=== PATIENT | female | born 1975 | race Caucasian/White ===

== ENCOUNTER 2022-09-23 08:01 | Day surgery (SDC) | payer OTHER, SELFPAY ==
--- NOTE | 2022-09-23 | IMM_PTH ---
PATIENT: BRIELLE JAIN LOC: EN U#:[id number] AGE/SX: 47/F ROOM: RE09/23/[address]: Dr. Jarrod Clemons MD : 1975 BED: DIS: 09/23/2022 SPEC #: [id number] RECD: 09/24/22 08:06 STATUS: MARÍA ARMENTA #: [id number] BROCK: 09/23/22 00:[address]: Jarrod Clemons DEPT: IMMUNOHISTOCHEMISTRY RECD BY: Aron More ENTERED: 09/24/22 08:07 SP TYPE: IMMUNO OTHR DR: Dr. Chris Lee MD Tissues: A - Pylorus Procedures: H Pylori (initial) PHYSICIAN & INSTITUTION [place] [address] SPECIMEN INFORMATION: Tissue Source: Prepyloric Clinical Info: Anemia, acute Specimen Number: [id number] CPT code: 89108 METHODOLOGY: Deparaffinized sections of prefer/formalin-fixed tissue or PAP/DQ stained slides are incubated with monoclonal/polyclonal antibodies/oligonucleotide probes. Localization is made via biotin free immunoperoxidase method. Appropriate controls are performed and reacted as expected. Results on target cell population are indicated in the following table: RESULTS: ANTIBODY / CLONE RESULT H Pylori (polyclonal) negative These tests were developed and their performance characteristics determined by [facility]. They may not have been cleared or approved by the U.S. Food and Drug Administration. The FDA has determined that such clearance or approval is not necessary. The above immunohistochemical/dualISH markers are ordered and reviewed by the Pathologist. INTERPRETATION: A. Prepyloric, biopsy: Negative for Helicobacter pylori organisms. AM:misha 09/24/22
--- NOTE | 2022-09-23 | GASB_PTH ---
[id number] LOC: EN U#:[id number] AGE/SX: 47/F ROOM: RE09/23/[address]: Dr. Jarrod Clemons MD : 1975 BED: DIS: 09/23/2022 SPEC #: [id number] RECD: 09/23/22 11:00 STATUS: MARÍA KATHI #: [id number] BROCK: 09/23/22 00:[address]: Jarrod Clemons DEPT: SURGICAL PATHOLOGY RECD BY: Juan M Cantu ENTERED: 09/23/22 13:13 SP TYPE: Gastric Bx OTHR DR: Dr. Chris Lee MD Tissues: A - Pyloric antrum B - Gastric mucous membrane C - Gastric mucous membrane D - Gastric mucous membrane E - Rectum, NOS F - Rectum, NOS G - Descending colon H - Sigmoid colon biopsy I - Sigmoid colon biopsy J - Anal region Procedures: Surgery Specimen Level IV HEADER OPERATION: Colonoscopy, EGD biopsy PRE-OP DIAGNOSIS: Anemia, acute TISSUE SUBMITTEDA. A. Prepyloric, B. Gastric body greater curvature, C. Fundic, D. Zline, E. Rectum polyp, F. Rectum polyps, G. Descending colon polyp, H. Sigmoid proximal colon polyp, I. Distal sigmoid polyp, J. Anal verge polyp FROZEN SECTION DIAGNOSIS . MICROSCOPIC DIAGNOSIS A. Prepyloric, biopsy: Mild chronic inflammation. B. Gastric body greater curvature, biopsy: Mild chronic inflammation. C. Fundic, biopsy: Mild chronic inflammation. D. Z-line, biopsy: Chronic gastritis. E. Rectum polyp, biopsy: Tubular adenoma. F. Rectum polyps, biopsy: Fragments of hyperplastic polyp. G. Descending colon polyp, biopsy: Fragments of hyperplastic polyp. H. Sigmoid proximal colon polyp, biopsy: Colonic mucosa with hyperplastic change. I. Distal sigmoid polyp, biopsy: Fragments of hyperplastic polyp. J. Anal verge polyp, biopsy: Benign squamous polyp with degenerative change and vascular congestion. AM:am 09/24/22 COMMENT A. The results of immunohistochemistry for Helicobacter pylori will be reported separately ([id number]). MICROSCOPIC DESCRIPTION Slides are reviewed. GROSS DESCRIPTION A. Received is one container labeled with the patient name and designated prepyloric. The specimen consists of two irregular fragments of light nance soft tissue that in aggregate measure 0.6 x .2 x .1 cm. The specimen is totally submitted in one cassette. B. Received is one container labeled with the patient name and designated gastric body greater curvature. The specimen consists of two irregular fragments of light nance soft tissue that in aggregate measure .6 x .3 x .1 cm. The specimen is totally submitted in one cassette. C. Received is one container labeled with the patient name and designated fundic. The specimen consists of multiple irregular fragments of light nance soft tissue that in aggregate measure .6 x .6 x .1 cm. The specimen is totally submitted in one cassette. D. Received is one container labeled with the patient name and designated zline. The specimen consists of multiple irregular fragments of light nance soft tissue that in aggregate measure .6 x .3 x .1 cm. The specimen is totally submitted in one cassette. E. Received in fixative is one container labeled with the patient's name and designated rectum polyp. The specimen consists of a pink-red polyp measuring 1.5 x 1 x 1 cm. The presumed base is inked. The polyp is serially sectioned and submitted entirely in one cassette. F. Received is one container labeled with the patient name and designated rectum polyp. The specimen consists of multiple irregular fragments of light nance soft tissue that in aggregate measure 2.5 x .5 x .1 cm. The specimen is totally submitted in one cassette. G. Received is one container labeled with the patient name and designated descending colon. The specimen consists of multiple irregular fragments of light nance soft tissue that in aggregate measure 1 x .3 x .1 cm. The specimen is totally submitted in one cassette. H. Received is one container labeled with the patient name and designated Sigmoid proximal colon. The specimen consists of multiple irregular fragments of light nance soft tissue that in aggregate measure 06 x .3 x .1 cm. The specimen is totally submitted in one cassette. I. Received is one container labeled with the patient name and designated distal sigmoid polyp. The specimen consists of multiple irregular fragments of light nance soft tissue that in aggregate measure 2 x .7 x .1 cm. The specimen is totally submitted in one cassette. J. Received is one container labeled with the patient name and designated anal verge. a pink-red polyp measuring 0.8 x 0.5 x 0.5 cm. The presumed base is inked. The polyp is bisected and submitted entirely in one cassette. /SJ:cc 09/24/22 TC:3 CPT:22875 x10,
[2022-09-23] MEDS: Lactated Ringers 1,000 ML 15 ML IV (08:48)
[2022-09-23 08:49] VITALS: BP 138/97; PULSE 78; RESP 18; TEMP 37; O2SAT 100; BMI 32.3
[2022-09-23 08:57] LABS: Internal QC Validated? YES +Cl - CLEAR BKGD; Pregnancy, Urine Negative Negative
--- NOTE | 2022-09-23 09:34 | PCM.HP.BLA ---
History and Physical Date of Admission: 09/23/22 Date of Service: 09/13/22 MR#: [id number] Acct: [id number] Name: BRIELLE NAZARIO Rep #: [id number] : 1975 Provider: Dr. Jarrod Clemons MD Age/Sex: 47/F Location: [facility] Status: Signed Intake Vital Signs 04/26/2308:35 09/13/2312:21 Height 5 ft 7 in 5 ft 6 in Weight: 211 lb 199 lb BMI 33.0 32.1 BP 148/90 H 151/91 H Blood Pressure Location Rt radial Rt brachial Position Sitting Sitting Respiration 16 16 Pulse 90 84 Pulse Source Monitor Monitor Temp 97.9 F Temp Source Temporal Pulse Oximetry (%) 100 Oxygen Delivery Method room air Intake Visit Reasons: UPPER & LOWER - ANEMIA Chief Complaint: upper/lower-anemia Allergies No Known Allergies Allergy (Unverified 09/13/22 13:23) Nurse's Note: Patient didnt know the strength of any of her meds. she states she is taking lisinopril, levothyroxine and omeprazole. HPI HPI HPI: Patient is a 47-year-old female who presents for need to schedule diagnostic colonoscopy secondary to recently diagnosed iron deficiency anemia. They are referred for surgical consultation from RAMEZ Beltran. Mansi reports today with her . She states that she went to her PCP office on 09/06/2022 after feeling as though her face was tingly some shortness of breath, some dizziness, and some left upper quadrant discomfort. She notes that the symptoms preceded her presentation by just 2 days. She confirms that her energy level has been okay and she denies any lightheadedness. Patient has not had prior colonoscopy. Patient has no personal history of phonatory bowel disease or diverticulitis. They describe their bowel habits as normal and occurring at least 1 time per day without significant straining. She specifically denies any difficulties with constipation or diarrhea. They have not noticed recent bleeding or dark stools. Patient has no family history of colon cancer, inflammatory bowel disease, or diverticulitis. The patient's weight is not stable and she reports an intentional weight loss of 45 pounds over the last 2 years. She states that she has a new job where she is very active walking and is also trying to make some dietary changes. Also regarding her anemia, patient states that she is still menstruating and has noticed some heavier menstrual cycles than when she was younger, but does not believe this is enough to explain her current symptoms. She denies any other sources of blood loss. The patient is not prescribed anticoagulants/blood thinners. Relevant prior abdominal surgical history includes: section 2000, appendectomy 2011 Patient does have a significant history of GERD/heartburn and currently takes omeprazole. She states that her symptoms are well controlled with this medication and will experience breakthrough symptoms maybe only once per month. She believes that she has had a prior upper scope, but is unable to clarify any details initially. When asked about any prior ulcer disease, she states she believes this was the cause for her upper scope and now that it is mentioned her left upper quadrant discomfort noted earlier feels similar to when she was diagnosed with ulcers previously. She denies any significant recent life stressors. In addition to the above, Mrs. Nazario reports that she is due to be evaluated for possible gallbladder surgery. She states that this comes after a work-up for some right upper quadrant discomfort she was having which included a right upper quadrant ultrasound that identified gallstones. She states that she has had no right upper quadrant discomfort lately while watching her diet for any fatty foods. ROS General General: No weight change, appetite, fatigue, colon cancer, breast cancer or weakness HEENT HEENT: No difficulty swallowing, eye injury, eye surgery, swollen glands or hoarseness Endo Endocrine: No thyroid disease, diabetes mellitus, thyroid cancer, Hair loss, heat intolerance or cold intolerance Skin Skin: No rash or changing moles Breast Breast: No left breast lump, right breast lump, nipple discharge, breast pain, abnormal mammogram, abnormal US or breast enlargement Musc Musculoskeletal: No back problems, arthritis, rheumatoid arthritis, gout or joint pain Cardio Cardiovascular: No murmur, pacemaker, heart disease, atrial fibrillation, high blood pressure, heart attack, heart stent, palpitations, shortness of breat with exertion or chest pain Psych Psychiatric: No depression, anxiety or hearing voices Resp Respiratory: No shortness of breath, No sleep apnea, No cough, No COPD, No asthma, No emphysema and No wheezing Gastro Gastrointestinal: No abdominal pain, No nausea or vomiting, No diarrhea, No constipation, No blood in stool, No acid reflux, No hemorrhoids, No ulcers, No gallbladder problem and No black,tarry stools Adama Hematologic: No blood thinners, No blood disorders, No bleeding, No anemia and No blood clots Neuro Neurologic: No system reviewed and no additional complaints, except as documented, No as per HPI, No abnormal gait, No abnormal hearing, No abnormal movements, No abnormal speech, No behavioral changes, No burning sensations, No confusion, No convulsions, No disequilibrium, No dizziness, No localized weakness, No frequent falls, No headache(s), No lack of coordination, No loss of vision, No memory loss, No numbness, No other visual disturbances, No radicular pain, No restless legs, No sensory deficit, No syncope, No tingling, No tremor(s), No weakness and No other Exam Const General: cooperative, comfortable and no acute distress Orientation: alert, awake and oriented x3 Resp Effort & Inspection: normal respiratory effort GI Other: Nondistended, well-healing port site scars from prior appendectomy, soft, nontender to palpation x4 quadrants (but patient motions to her left upper abdomen as of the point in which she has experienced internal discomfort previously. Negative Napoles sign. Assessment and Plan Assessment and Plan (1) Anemia: Status: Acute Qualifiers: Anemia type: iron deficiency Comment: This is a 47-year-old female who presents rather acutely following development of symptoms of shortness of breath and dizziness and is found to exhibit iron deficient anemia. Hemoglobin checked last week was 9.1 g/dL. MCV was 72. Per MrsMarjorie Nazario her PCP is looking to initiate supplemental iron therapy as soon as possible. Taking patient's history, she denies any changes to her bowel habits and any signs of blood loss with her stools. She does describe some left upper quadrant discomfort which is reminiscent of a past experience with peptic ulcers. Given this history and her current complaints, this could certainly be implicated. Yet, given that she is 47 years old and has not completed a screening colonoscopy, I recommend pursuing both diagnostic EGD and colonoscopy continue to evaluate for source of her anemia. Procedure was discussed in detail and all questions were taken from patient and her spouse. I will plan to proceed with a standard split prep given that she has regular bowel function, but have cautioned her to notify us if she develops constipation in response to the planned iron therapy that we should move this to a 2-day prep. Plan: ? Recommend diagnostic EGD and colonoscopy under local MAC to evaluate for source of new anemia. Procedures to be scheduled as soon as possible. As above, planning for standard split prep I have examined the patient and the H&P has been reviewed. There are no clinical changes since date of exam. Patient confirms that she completed her prep in anticipation of today's procedure and that her output is now clear without sediment. She also reports that her abdominal discomfort noted during her consultation visit seems to have subsided. She and her family deny any questions related to the procedure after details are briefly reviewed. Therefore we will proceed to endoscopy suite for planned upper and lower diagnostic scopes occasioned by finding of iron deficiency anemia.
[2022-09-23 10:56] VITALS: BP 110/65; BP 138/97; PULSE 84; RESP 14; TEMP 36.4; O2SAT 98
[2022-09-23 11:00] VITALS: BP 114/82; BP 138/97; PULSE 84; RESP 18; O2SAT 97
--- NOTE | 2022-09-23 11:00 | OP.EGD_ITS ---
Patient Name: Nuvia Nazario Procedure Date: 09/23/2022 9:39 AM Date of : 1975 Age: 47 Procedure: Upper GI endoscopy Indications: Abdominal pain in the left upper quadrant, Iron deficiency anemia, Personal history of peptic ulcer disease Providers: Jarrod Clemons MD Medicines: See the Anesthesia note for documentation of the administered medications Patient Profile: Refer to note in patient chart for documentation of history and physical. Complications: No immediate complications. Estimated blood loss: Minimal. Procedure: Pre-Anesthesia Assessment: - The heart rate, respiratory rate, oxygen saturations, blood pressure, adequacy of pulmonary ventilation, and response to care were monitored throughout the procedure. After obtaining informed consent, the endoscope was passed under direct vision. Throughout the procedure, the patient's blood pressure, pulse, and oxygen saturations were monitored continuously. The was introduced through the mouth, and advanced to the second part of duodenum. The upper GI endoscopy was accomplished without difficulty. The patient tolerated the procedure well. Scope In: 9:48:37 AM Scope Out: 10:00:41 AM Total Procedure Duration Time 0 hours 12 minutes 4 seconds Findings: No gross lesions were noted in the duodenal bulb, in the first portion of the duodenum and in the second portion of the duodenum. No biopsies or other specimens were collected for this exam. Localized mildly erythematous mucosa without bleeding was found in the prepyloric region of the stomach. Biopsies were taken with a cold forceps for histology. Estimated blood loss was minimal. Localized mildly erythematous mucosa without bleeding was found on the greater curvature of the stomach. Estimated blood loss was minimal. Localized mild mucosal changes characterized by altered texture were found in the gastric fundus. Biopsies were taken with a cold forceps for histology. Estimated blood loss was minimal. A small hiatal hernia was present. No biopsies or other specimens were collected for this exam. The Z-line was irregular and was found 39 cm from the incisors. Biopsies were taken with a cold forceps for histology. Estimated blood loss: Minimal. The exam was otherwise without abnormality. Impression: - No gross lesions in the duodenal bulb, in the first portion of the duodenum and in the second portion of the duodenum. No specimens collected. - Erythematous mucosa in the prepyloric region of the stomach. Biopsied. - Erythematous mucosa in the greater curvature. - Texture changed mucosa in the gastric fundus. Biopsied. - Small hiatal hernia. No specimens collected. - Z-line irregular, 39 cm from the incisors. Biopsied. - The examination was otherwise normal. Recommendation: - Discharge patient to home (via wheelchair). - Resume previous diet today. - Use Prilosec (omeprazole) 20 mg PO daily today. - Continue present medications. Procedure Code(s): --- Professional --- 48901, Esophagogastroduodenoscopy, flexible, transoral; with biopsy, single or multiple Diagnosis Code(s): --- Professional --- K31.89, Other diseases of stomach and duodenum K44.9, Diaphragmatic hernia without obstruction or gangrene K22.8, Other specified diseases of esophagus R10.12, Left upper quadrant pain D50.9, Iron deficiency anemia, unspecified Z87.11, Personal history of peptic ulcer disease CPT copyright 2017 [employer]. All rights reserved. The codes documented in this report are preliminary and upon reroller hand review may be revised to meet current compliance requirements. Jarrod Clemons MD 09/23/2022 11:00:26 AM This report has been signed electronically. Number of Addenda: 0 Note Initiated On: 09/23/2022 9:39 AM
[2022-09-23 11:05] VITALS: BP 114/84; BP 138/97; PULSE 83; RESP 16; O2SAT 96
[2022-09-23 11:11] VITALS: BP 118/71; BP 138/97; PULSE 71; RESP 16; TEMP 36.2; O2SAT 95
--- NOTE | 2022-09-23 11:11 | OP.COLON_ITS ---
Patient Name: Nuvia Nazario Procedure Date: 09/23/2022 10:01 AM Date of : 1975 Age: 47 Procedure: Colonoscopy Indications: Iron deficiency anemia Providers: Jarrod Clemons MD Medicines: See the Anesthesia note for documentation of the administered medications Patient Profile: Refer to note in patient chart for documentation of history and physical. Last Colonoscopy: none. The patient's first colonoscopy is today. Complications: No immediate complications. Estimated blood loss: Minimal. Procedure: Pre-Anesthesia Assessment: - The heart rate, respiratory rate, oxygen saturations, blood pressure, adequacy of pulmonary ventilation, and response to care were monitored throughout the procedure. - The heart rate, respiratory rate, oxygen saturations, blood pressure, adequacy of pulmonary ventilation, and response to care were monitored throughout the procedure. After I obtained informed consent, the scope was passed under direct vision. Throughout the procedure, the patient's blood pressure, pulse, and oxygen saturations were monitored continuously. The was introduced through the anus and advanced to the cecum, identified by palpation. The colonoscopy was performed without difficulty. The patient tolerated the procedure well. The quality of the bowel preparation was adequate to identify polyps. Scope In: 10:02:55 AM Scope Withdrawal Time 0 hours 27 minutes 27 seconds Scope Out: 10:49:38 AM Total Procedure Duration Time 0 hours 46 minutes 43 seconds Findings: Multiple small and large-mouthed diverticula were found in the sigmoid colon, descending colon and transverse colon. No biopsies or other specimens were collected for this exam. A 15 mm polyp was found in the descending colon. The polyp was semi-sessile. Biopsies were taken with a cold forceps for histology. Estimated blood loss was minimal. A 15 mm polyp was found in the proximal sigmoid colon. The polyp was semi-sessile. Biopsies were taken with a cold forceps for histology. Estimated blood loss was minimal. A 15 mm polyp was found in the distal sigmoid colon. The polyp was semi-sessile. Biopsies were taken with a cold forceps for histology. Estimated blood loss was minimal. A 20 mm polyp was found in the rectum. The polyp was pedunculated. The polyp was removed with a hot snare. Resection and retrieval were complete. Estimated blood loss: none. Multiple sessile polyps were found in the rectum. The polyps were 3 to 5 mm in size. These were biopsied with a cold forceps for histology. Estimated blood loss was minimal. A 10 mm polyp was found in the anus. The polyp was pedunculated. The polyp was removed with a hot snare. Resection and retrieval were complete. Estimated blood loss: none. Impression: - Diverticulosis in the sigmoid colon, in the descending colon and in the transverse colon. No specimens collected. - One 15 mm polyp in the descending colon. Biopsied. - One 15 mm polyp in the proximal sigmoid colon. Biopsied. - One 15 mm polyp in the distal sigmoid colon. Biopsied. - One 20 mm polyp in the rectum, removed with a hot snare. Resected and retrieved. - Multiple 3 to 5 mm polyps in the rectum. Biopsied. - One 10 mm polyp at the anus, removed with a hot snare. Resected and retrieved. Recommendation: - Discharge patient to home (via wheelchair). - High fiber diet today. - Continue present medications. - Await pathology results. - Repeat colonoscopy date to be determined after pending pathology results are reviewed for surveillance based on pathology results. - Telephone my office for pathology results in 1 week. Procedure Code(s): --- Professional --- 39335, Colonoscopy, flexible; with removal of tumor(s), polyp(s), or other lesion(s) by snare technique 89409, 59, Colonoscopy, flexible; with biopsy, single or multiple Diagnosis Code(s): --- Professional --- D12.4, Benign neoplasm of descending colon D12.5, Benign neoplasm of sigmoid colon K62.1, Rectal polyp K62.0, Anal polyp D50.9, Iron deficiency anemia, unspecified K57.30, Diverticulosis of large intestine without perforation or abscess without bleeding CPT copyright 2017 [employer]. All rights reserved. The codes documented in this report are preliminary and upon remote coders review may be revised to meet current compliance requirements. Jarrod Clemons MD 09/23/2022 11:10:46 AM This report has been signed electronically. Number of Addenda: 0 Note Initiated On: 09/23/2022 10:01 AM
[2022-09-23 11:22] VITALS: BP 138/97
== END 2022-09-23 11:36 | disposition home or self-care (01) ==
LOC: EN 08:05 → AC 08:07
PROVIDERS: Anesthesiology; PCP Family Medicine; Referring Provider Family Medicine; Visit Provider Surgery
PROC: 0DJD8ZZ Inspection of Lower Intestinal Tract, Via Natural or Artificial Opening Endoscopic (ICD-10-PCS; CPT 45378; principal; 2022-09-23 09:10)
DX: D50.9 Iron deficiency anemia, unspecified (principal); K62.0 Anal polyp; K57.30 Diverticulosis of large intestine without perforation or abscess without bleeding; K80.20 Calculus of gallbladder without cholecystitis without obstruction; R06.02 Shortness of breath; K44.9 Diaphragmatic hernia without obstruction or gangrene; K62.1 Rectal polyp; Z56.1 Change of job; D12.4 Benign neoplasm of descending colon; D12.5 Benign neoplasm of sigmoid colon; K31.89 Other diseases of stomach and duodenum; Z87.11 Personal history of peptic ulcer disease
CPT/HCPCS: 43239; 45385; 45380; 81025; 88305; 88331; 88332; 88342; J7120; J2405

== ENCOUNTER 2022-11-26 06:12 | Day surgery (SDC) | payer OTHER, SELFPAY ==
[2022-11-26] VITALS (7 sets, daily range): BP systolic 112–162; BP diastolic 57–82; PULSE 67–82; RESP 15–18; TEMP 36.1–36.6; O2SAT 93–100; BMI 31.3
[2022-11-26 06:51] LABS: Internal QC Validated? YES +Cl - CLEAR BKGD; Pregnancy, Urine Negative Negative
[2022-11-26] MEDS: Lactated Ringers 1,000 ML 15 ML IV ×3 (07:04→11:29)
--- NOTE | 2022-11-26 07:15 | HP.PCM_ITS ---
History and Physical Date of Service: 11/08/22 MR#: [id number] Acct: [id number] Name: BRIELLE JAIN Rep #: [id number] : 1975 Provider: Dr. Jarrod Clemons MD Age/Sex: 47/F Location: [facility] Status: Signed Intake Vital Signs 10/11/2305:44 11/08/2308:28 Height 5 ft 6 in 5 ft 6 in Weight: 198 lb 6 oz 197 lb BMI 32.0 31.8 BP 142/92 H 143/90 H Blood Pressure Location Rt brachial Rt brachial Position Sitting Sitting Respiration 17 Pulse 80 81 Pulse Source Monitor Monitor Temp 97.2 F L Temp Source Temporal Pulse Oximetry (%) 99 100 Oxygen Delivery Method room air Intake Visit Reasons: CHOLECYSTITIS/POSITIVE COLOGUARD Chief Complaint: cholecystitis Is patient in pain?: No Allergies No Known Allergies Allergy (Verified 11/08/22 09:30) Medications levothyroxine 100 mcg tablet 100 mcg PO DAILY 09/21/22 [History Confirmed 11/08/22] lisinopril 5 mg tablet 5 mg PO DAILY 09/21/22 [History Confirmed 11/08/22] pantoprazole 40 mg tablet,delayed release 40 mg PO DAILY #28 tabs 09/29/22 [Rx Confirmed 11/08/22] multivitamin with iron 1 tab PO DAILY 11/08/22 [History Confirmed 11/08/22] PFSH Medical History Gallstones GERD (gastroesophageal reflux disease) Leg cramps Smoker Thyroid disease Surgical History History of appendectomy History of section Family History (Updated 11/08/22 @ 09:28 by Suma Ball) Mother Hypertension Social History Smoking Status: Current every day smoker tobacco type: cigarettes HPI HPI HPI: Patient is a 47-year-old female who presents for evaluation of cholelithiasis. She is known to me for a prior history of positive Cologuard testing and she is status post EGD and colonoscopy on 09/23/2022. They are referred for surgical consultation from RAMEZ Gibbs. She presents today with her . She states that overall she has been able to watch what she eats and by doing so has limited her symptoms. When asked to expound upon this she states that she is intentionally limiting greasy and spicy foods from her diet. She notes that she recently became sick when she tried to eat some pulled pork. She describes her symptoms as right upper quadrant discomfort and that moves to her back. It is accompanied by some nausea. She denies any associated fevers or chills. She denies any other health updates since our last interactions a month ago. Previous work-up has included: Right upper quadrant ultrasound from 07/09/2022 which showed a 2.5 cm gallbladder calculus with normal gallbladder wall and normal CBD. Past surgical history includes laparoscopic appendectomy. ROS General General: No weight change, appetite, fatigue, colon cancer, breast cancer or weakness HEENT HEENT: No difficulty swallowing, eye injury, eye surgery, swollen glands or hoarseness Endo Endocrine: Yes thyroid disease; No diabetes mellitus, thyroid cancer, Hair loss, heat intolerance or cold intolerance Skin Skin: No rash or changing moles Musc Musculoskeletal: No back problems, arthritis, rheumatoid arthritis, gout or joint pain Cardio Cardiovascular: Yes high blood pressure; No murmur, pacemaker, heart disease, atrial fibrillation, heart attack, heart stent, palpitations, shortness of breat with exertion or chest pain Psych Psychiatric: No depression, anxiety or hearing voices Resp Respiratory: No shortness of breath, No sleep apnea, No cough, No COPD, No asthma, No emphysema and No wheezing Gastro Gastrointestinal: Yes abdominal pain, No nausea or vomiting, No diarrhea, No constipation, No blood in stool, Yes acid reflux, No hemorrhoids, No ulcers, Yes gallbladder problem and No black,tarry stools Adama Hematologic: No blood thinners, No blood disorders, No bleeding, No anemia and No blood clots Neuro Neurologic: No system reviewed and no additional complaints, except as documented, No as per HPI, No abnormal gait, No abnormal hearing, No abnormal movements, No abnormal speech, No behavioral changes, No burning sensations, No confusion, No convulsions, No disequilibrium, No dizziness, No localized wea kness, No frequent falls, No headache(s), No lack of coordination, No loss of vision, No memory loss, No numbness, No other visual disturbances, No radicular pain, No restless legs, No sensory deficit, No syncope, No tingling, No tremor(s), No weakness and No other Exam Const General: cooperative and no acute distress Orientation: alert, awake and oriented x3 Resp Effort & Inspection: normal respiratory effort GI Other: Nondistended, midepigastric scar with slight hypertrophic element, soft, nontender to palpation x4 quadrants. Negative Napoles sign. No herniations detected. Assessment and Plan Assessment and Plan (1) Symptomatic cholelithiasis: Status: Acute Comment: This is a 47-year-old female with a history of right upper quadrant pain?particularly following ingestion of greasy foods and ultrasound evidence of a large 2.5 cm gallstone. Patient is presently nontender on exam, however based on her description and where she states her pain is centralized on exam, I do believe her symptoms are secondary to this gallstone. Therefore, it is my recommendation to pursue cholecystectomy. I have shared with her that I would also recommend concurrent cholangiography and given that her most recent comprehensive metabolic panel available to me is from May of this year, would recommend updating this preoperatively. I have shared with patient that she would be an ideal candidate for minimally invasive cholecystectomy?to be done either robotically or laparoscopically. She has chosen to proceed laparoscopically given the greater date availability. Details of the procedure have been reviewed and this introduction was facilitated with the use of hand drawings of the relevant anatomy. We will plan for outpatient cholecystectomy with cholangiography, but patient is also briefed that she could require an observational stay with ERCP if she was found to have choledocholithiasis. She and her expressed understanding and are interested in moving forward at the next mutual schedule availability. Plan: Laparoscopic cholecystectomy with intraoperative cholangiogram. Planned disposition: Outpatient. I have examined the patient and the H&P has been reviewed. There are no clinical changes since date of exam. Procedure and post procedure expectations reviewed with patient. Consents were confirmed. They have no further questions. Proceed to the operating room for laparoscopic cholecystectomy with intraoperative cholangiogram as discussed above.
[2022-11-26] MEDS: Cefazolin 2 GM in 0.9% Normal Saline (100mL Bag) 100 ML IV (07:47)
--- NOTE | 2022-11-26 08:00 | GALL_PTH ---
PATIENT: BRIELLE JAIN [place] [facility] [place][id number] AGE/SX: 47/F ROOM: RE11/26/[address]: Dr. Jarrod Clemons MD : 1975 BED: DIS: 11/26/2022 SPEC #: [id number] RECD: 11/26/22 10:20 STATUS: MARÍA KATHI #: [id number] BROCK: 11/26/22 08:[address]: Jarrod Clemons DEPT: SURGICAL PATHOLOGY RECD BY: Charis Alegre ENTERED: 11/26/22 11:35 SP TYPE: ADAM OLIVER DR: Dr. Chris Lee MD Tissues: Gallbladder, NOS Procedures: Surgery Specimen Level III HEADER OPERATION: Laparoscopic cholecystectomy with IOC PRE-OP DIAGNOSIS: Symptomatic cholelithiasis TISSUE SUBMITTED: Gallbladder MICROSCOPIC DIAGNOSIS Gallbladder, cholecystectomy: Chronic cholecystitis and cholelithiasis. AM:ying 11/29/2022 MICROSCOPIC DESCRIPTION Slides are reviewed. GROSS DESCRIPTION Received is one container labeled with the patient's name and designated gallbladder. The specimen consists of a gallbladder measuring 9.0 cm in length and up to 3.0 cm in diameter. The external surface is pink-nance, smooth and glistening for the most part. Focally it is granular, hemorrhagic and contains cautery artifact. The gallbladder contains green-yellow mucoid bile and one greenish, ovoid stone measuring 3.0 cm in greatest dimension. The mucosa is bile-stained and without any mass lesions. The gallbladder wall measures up to 0.2 cm in thickness. Deckhand Oyster Dredge sections from the gallbladder and the cystic duct are submitted in one cassette. / SJ:rg 11/26/2022 TC:3 [facility]: [id number]
--- NOTE | 2022-11-26 08:10 | RAD_ITS ---
STUDY: INTRAOPERATIVE CHOLANGIOGRAM. REASON FOR EXAM: Female, 47 years old. Laparoscopic cholecystectomy. FLUOROSCOPY TIME (if supplied): ( 27.8 seconds ) minutes/seconds. 11.14 mGy TECHNIQUE: An intraoperative discogram was performed by the surgeon. Imaging was submitted. COMPARISON: None. FINDINGS: The intra and extrahepatic biliary ducts are unremarkable. There is free flow of contrast into the duodenum. RAD/Cholangiogram/ O R,Initial IMPRESSION: Unremarkable intraoperative cholangiogram. Electronically Signed: Fernando Brennan MD at 10:28 EDT ,
[2022-11-26] MEDS: Bupivacaine Mpf 0.5% 30 ML VIAL (08:20)
--- NOTE | 2022-11-26 09:17 | OP.PCM_ITS ---
Report of Operation Date of Procedure: 11/26/22 Pre-Operative Diagnosis: Symptomatic cholelithiasis Post-Operative Diagnosis: 1. Symptomatic cholelithiasis 2. Chronic cholecystitis Surgery/Procedure Performed:: Laparoscopic cholecystectomy and intraoperative cholangiogram Description of Surgical Findings:: ? Grossly normal biliary anatomy with single cystic duct and cystic artery ? Evidence of chronic inflammation around the duct and artery ? Cholangiogram appeared to show takeoff of the cystic duct from the right hepatic duct but no filling defects through the ampulla Vater into the duodenum Surgeon: Jarrod Clemons professor of physical education: Alfred Miller Type of Anesthesia: General/Supplemental Anesthesiologist: Wale Bernstein Specimen's removed: Gallbladder Drains: None Estimated Blood Loss (mL): 5 Description of Procedure: After proper identification in the preoperative holding area the patient was brought to the operating room where she was positioned supine on the operating room table. Preoperatively these were placed and antibiotics were administered. General anesthesia was then induced. Patient's abdomen was prepped and draped in usual sterile fashion. A formal timeout was conducted to confirm both pa tient and the procedure. Procedure was begun with a supraumbilical incision which was extended deeply down to the level of the fascia. The fascia was elevated and incised, as well as the peritoneum. A finger sweep was performed to ensure there were no underlying adhesions and a 12 mm balloon trocar was inserted. Pneumoperitoneum was established at 15 mmHg. 3 additional trocars were placed in the epigastrium and in the right upper quadrant (3 x 5 mm). Inspection of the peritoneum revealed no inadvertent injury to the viscera below. The gallbladder was visualized with mild inflammation. The gallbladder fundus was then grasped and elevated cephalad. Then, using careful dissection the peritoneum was opened and the structures of the hepatocystic triangle were delineated. Once the critical view of safety was obtained, the cystic duct was singly clipped and partially divided with a ductotomy. The proximal duct was milked of any debris until there was backflow of bile. Using an Baeza Gal clamp, a cholangiocatheter was fed into the proximal segment of the cystic duct and clamped into place. Under fluoroscopy a cholangiogram was then obtained showing a short cystic duct flowing into the right hepatic duct ultimately the common bile duct with unobstructed antegrade flow of contrast into the duodenum [vs other findings]. There was also retrograde flow through the common hepatic duct into the right and left hepatic ducts with apparent aberrant branching into a anterior and posterior system from the left rather than the right. Satisfied with this result, the cholangiocatheter was withdrawn and the proximal cystic duct was sealed with clips and the cystic duct was completely transected. The same process was used for the cystic artery. The gallbladder was then r emoved from the gallbladder fossa with the use of electrocautery. Selective electrocautery was used to obtain hemostasis in the gallbladder fossa. The gallbladder was placed in an Endo Catch bag and removed from the peritoneum. Morison's pouch was irrigated and the effluent was suctioned free of the peritoneum. Hemostasis was again confirmed. Pneumoperitoneum was evacuated and the fascia of the 12 mm port site was closed with #1Vicryl in a [id number] fashion. A total of 18 mL of anesthetic was injected at the port sites for postoperative pain control. The skin of each port site was then closed in subcuticular fashion using 4-0 Monocryl. Steri-Strips and bandages were applied as dressings. Patient tolerated the procedure well without any apparent complications. On emergence from their anesthetic the patient was taken to PACU for ongoing recovery. Grafts/Implants Used: None Complications None Admit VTE Documentation VTE Mechan Device Prophylaxis: SCD's Procedures Digestive 40xxx-49xxx: [id number] Laparo cholecystectomy/graph
--- NOTE | 2022-11-26 09:25 | DCINST_ITS ---
Discharge Instructions Diet Discharge Diet: No restrictions Activity Discharge Activity: May Not Drive (No driving while using narcotic pain medication) and May Shower (Postoperative day 1) May shower in (days): 2 Ice area for (Minutes): 20 Lifting Restrictions: No lifting greater than 15 pounds for 2 weeks after surgery Dressing / Incision Call your doctor if your incision/area has: Continuous Slow Oozing, Increased Pain/ Swelling, Increased Redness, Foul Smelling Discharge and Swelling at the incision site Call your doctor if you observe: Fever of 101 or Higher Remove Dressing in: 2 days (Please leave Steri-Strips intact until they fall off spontaneously or are taken off at your follow-up visit) Cleanse incision/area with: Soap & Water Follow Up Care Please Follow Up With: Jarrod Clemons MD When: 7-10days postop Test Results: Test results from this visit will be discussed in further detail at your follow- up appointment, if applicable. Discharge Plan Admission Primary Reason for Your Visit: Gallbladder surgery Attending Provider: Jarrod Clemons Primary Care Provider: Chris Lee Discharge Orders/Prescriptions Prescriptions: New oxycodone 5 mg tablet 5 mg PO Q6H PRN (Reason: pain) 3 Days Qty: 14 0RF Continued multivitamin with iron Tablet 1 tab PO DAILY levothyroxine 100 mcg tablet 100 mcg PO DAILY lisinopril 5 mg tablet 5 mg PO DAILY omeprazole 40 mg capsule,delayed release(DR/EC) 40 mg PO DAILY Patient Comments: TAKE 1 CAPSULE BY MOUTH ONCE DAILY potassium 99 mg tablet 99 mg PO DAILY Referrals / Follow Up: Chris Lee MD [Primary Care Provider] - Disposition Disposition (needs filled in before D/C Order can be placed): Home, Self Care
[2022-11-26] MEDS: oxyCODONE 5 MG Tablet PO (11:13)
== END 2022-11-26 12:45 | disposition home or self-care (01) ==
LOC: SDC 06:12 → AC 06:12
PROVIDERS: Anesthesiology; PCP Family Medicine; Referring Provider Surgery; Visit Provider Surgery
PROC: (CPT 47610; principal; 2022-11-26 07:40)
DX: K80.10 Calculus of gallbladder with chronic cholecystitis without obstruction (principal); E07.9 Disorder of thyroid, unspecified; F17.210 Nicotine dependence, cigarettes, uncomplicated; K21.9 Gastro-esophageal reflux disease without esophagitis
CPT/HCPCS: 47563; 00790; 74300; 76000; 81025; 88304; J7120; J2405